=== PATIENT | male | born 1990 | race American Indian/Alaskan Native ===

== ENCOUNTER 2019-01-26 12:00 | Emergency (ER) | payer BC ==
--- NOTE | 2019-01-26 12:23 | Event Note ---
ED Screening Note ED Screening Note: since saturday having rectal pain constipation earlier last week +rectal bleeding, blood when wiping straining to have a BM no pus no rectal intercourse PMhx HIV, on antivirals, goes to [facility], pt states he is undetected no allergies to meds This initial assessment/diagnostic orders/clinical plan/treatment(s) is/are subject to change based on patients health status, clinical progression and re- assessment by fellow clinical providers in the ED. Further treatment and workup at subsequent clinical providers discretion. Patient/guardian urged not to elope from the ED as their condition may be serious if not clinically assessed and managed. Initial orders include: labs
--- NOTE | 2019-01-26 13:40 | Emergency Department Report ---
ED Abdominal Pain HPI - General Chief Complaint: GI Bleed Stated Complaint: STOMACH PAIN/BLOOD IN STOOL Time Seen by Provider: 01/26/19 12:19 Source: patient Mode of arrival: Ambulatory Limitations: No Limitations - History of Present Illness Initial Comments: Patient is 28-year-old male with history of HIV. Patient presented to the ER complaining off rectal bleeding mainly after defecation for the last 3 days. Patient is also complaining of abdominal cramping patient denied any fever or chills. Patient denied any nausea or vomiting. MD Complaint: abdominal pain Location: diffuse Severity scale (0 -10): 5 Quality: cramping - Related Data Allergies Allergy/AdvReac Type Severity Reaction Status Date / Time No Known Allergies Allergy Verified 01/26/19 12:21 ED Review of Systems ROS: Stated complaint: STOMACH PAIN/BLOOD IN STOOL Other details as noted in HPI Comment: All other systems reviewed and negative Constitutional: denies: chills, fever Respiratory: denies: cough, shortness of breath Cardiovascular: denies: chest pain Gastrointestinal: abdominal pain, hematochezia. denies: nausea, vomiting, diarrhea, constipation, hematemesis, melena Musculoskeletal: denies: back pain ED Past Medical Hx - Past Medical History Previous Medical History?: Yes Hx HIV: Yes - Surgical History Past Surgical History?: No - Social History Smoking Status: Never Smoker ED Physical Exam - General Limitations: No Limitations General appearance: alert, in no apparent distress - Head Head exam: Present: atraumatic, normocephalic, normal inspection - Eye Eye exam: Present: normal appearance - ENT ENT exam: Present: normal exam, normal orophraynx, mucous membranes moist - Neck Neck exam: Present: normal inspection, full ROM. Absent: tenderness, meningismus - Respiratory Respiratory exam: Present: normal lung sounds bilaterally - Cardiovascular Cardiovascular Exam: Present: regular rate, normal rhythm, normal heart sounds - GI/Abdominal GI/Abdominal exam: Present: soft, normal bowel sounds. Absent: distended, tenderness, guarding, rebound, rigid, organomegaly, mass, bruit, pulsatile mass, hernia - Extremities Exam Extremities exam: Present: normal inspection, full ROM, normal capillary refill - Back Exam Back exam: Present: normal inspection, full ROM. Absent: CVA tenderness (R), CVA tenderness (L), muscle spasm, paraspinal tenderness, vertebral tenderness - Neurological Exam Neurological exam: Present: alert, oriented X3, CN II-XII intact, normal gait, reflexes normal - Skin Skin exam: Present: warm, intact, normal color ED Course Vital Signs 01/26/19 01/26/19 12:04 15:55 Temperature 98.5 F Pulse Rate 81 84 Respiratory 19 18 Rate Blood Pressure 135/85 Blood Pressure 123/72 [Left] O2 Sat by Pulse 97 98 Oximetry ED Medical Decision Making - Lab Data Result diagrams: 01/26/19 13:26 01/26/19 13:26 - Radiology Data Radiology results: report reviewed Referring Physician: AMARI SOLIS Patient Name: VIJAY NIEVES Date of : 1990 Sex: Male Report Date: 2019-01-26 Report Status: [place] [address] Cat Scan Report Signed Patient: VIJAY NIEVES MR#: [id number] 1 : 1990 Acct:[id number] Age/Sex: 28 / M ADM Date: 01/26/19 Loc: ED Attending Dr: Ordering Physician: AMARI SOLIS Date of Service: 01/26/19 Procedure(s): CT abdomen pelvis w con Accession Number(s): [id number] cc: AMARI SOLIS CT ABDOMEN AND PELVIS WITH CONTRAST HISTORY: abdominal pain COMPARISON: None. TECHNIQUE: Axial CT images were obtained through the abdomen and pelvis after 100 cc of Omnipaque 300 intravenously. Sagittal and coronal reformatted images. All CT scans at this location are perfo rmed using CT dose reduction for ALARA by means of automated exposure control. FINDINGS: CT ABDOMEN: Lung Bases: Clear. Liver: No significant abnormality. Biliary: No significant abnormality. Spleen: No significant abnormality. Unenlarged. Pancreas: No significant abnormality. Adrenals: No significant abnormality. Kidneys: No significant abnormality. Lymphatics: No lymphadenopathy. Vasculature: No significant abnormality. Bowel/Peritoneum: There is moderate circumferential thickening and nodularity of the terminal ileum. No evidence for obstruction or free air. No obvious abscess. The remaining bowel loops are unremarkable given no oral contrast was administered. Normal appendix. CT PELVIS: : No significant abnormality. Osseous Structures: No significant abnormality. Additional Findings: None IMPRESSION: Abnormal terminal ileum. Consider Crohn's disease or other ileitis. Signer Name: Slim Davis Jr, MD Signed: 01/26/2019 3:59 PM Workstation Name: [id number] Transcribed By: ROBERT Dictated By: SLIM DAVIS JR, MD Electronically Authenticated By: SLIM DAVIS JR, MD Signed Date/Time: 01/26/19 1559 DD/ 1543 TD/TT: - Medical Decision Making Patient is 28-year-old male with history of HIV. Patient presented to the ER complaining off rectal bleeding mainly after defecation for the last 3 days. Patient is also complaining of abdominal cramping patient denied any fever or chills. Patient denied any nausea or vomiting. Labs reviewed and is unremarkable. CT abdomen and pelvis showed possible Crohn's disease. I discussed with the patient the results of his CT abdomen and pelvis and the need to follow-up with gastroenterology for possible colonoscopy and further management. Patient given [facility] for follow-up. Patient also found to have external hemorrhoid with no thrombosis. Patient given anusol and Colace and given [facility] senna for follow-up also. Critical care attestation.: If time is entered above; I have spent that time in minutes in the direct care of this critically ill patient, excluding procedure time. ED Disposition Clinical Impression: Abdominal pain, Rectal bleeding, External hemorrhoid Disposition: DC-01 TO HOME OR SELFCARE Is pt being admited?: No Condition: Stable Instructions: Rectal Bleeding (ED), Hemorrhoids (ED) Referrals: [facility] [Provider Group] - 3-5 Days [facility] [Provider Group] - 3-5 Days Forms: Accompanied Note
[2019-01-26 13:45] LABS: Basophils % (Auto) 0.2 % (0.0-1.8); Eosinophils % (Auto) 0.3 % (0.0-4.3); Lymphocytes # (Auto) 2.3 K/mm3 (1.2-5.4); Lymphocytes % (Auto) 23.6 % (13.4-35.0); Mean Corpuscular HGB Conc 34 % (32-34); Mean Corpuscular Volume 91 fl (84-94); Monocytes # (Auto) 1.3 K/mm3 (0.0-0.8); Monocytes % (Auto) 12.7 % (0.0-7.3); Platelet Count 263 K/mm3 (140-440); Red Blood Count 4.82 M/mm3 (3.65-5.03); Red Cell Distribution Width 13.4 % (13.2-15.2)
[2019-01-26 14:04] LABS: BUN/Creatinine Ratio 19; Blood Urea Nitrogen 17 mg/dL (9-20); Calcium 9.7 mg/dL (8.4-10.2); Hemolysis Index 7
[2019-01-26 15:16] LABS: Alanine Aminotransferase 9 units/L (7-56); Albumin 4.2 g/dL (3.9-5)
[2019-01-26 15:17] LABS: Bilirubin,Direct < 0.2 mg/dL (0-0.2)
[2019-01-26 15:57] VITALS: BP 123/72
--- NOTE | 2019-01-26 16:03 | Cat Scan Report ---
CT ABDOMEN AND PELVIS WITH CONTRAST HISTORY: abdominal pain COMPARISON: None. TECHNIQUE: Axial CT images were obtained through the abdomen and pelvis after 100 cc of Omnipaque 300 intravenously. Sagittal and coronal reformatted images. All CT scans at this location are performed using CT dose reduction for ALARA by means of automated exposure control. FINDINGS: CT ABDOMEN: Lung Bases: Clear. Liver: No significant abnormality. Biliary: No significant abnormality. Spleen: No significant abnormality. Unenlarged. Pancreas: No significant abnormality. Adrenals: No significant abnormality. Kidneys: No significant abnormality. Lymphatics: No lymphadenopathy. Vasculature: No significant abnormality. Bowel/Peritoneum: There is moderate circumferential thickening and nodularity of the terminal ileum. No evidence for obstruction or free air. No obvious abscess. The remaining bowel loops are unremarkab le given no oral contrast was administered. Normal appendix. CT PELVIS: : No significant abnormality. Osseous Structures: No significant abnormality. Additional Findings: None IMPRESSION: Abnormal terminal ileum. Consider Crohn's disease or other ileitis. Signer Name: Slim Davis Jr, MD Signed: 01/26/2019 3:59 PM Workstation Name: [id number]
== END 2019-01-26 16:25 | disposition home or self-care (01) ==
LOC: ED 12:00
DX: K64.4 Residual hemorrhoidal skin tags (principal)
CPT/HCPCS: 36415; 74177; 80048; 80076; 85025